=== PATIENT | female | born 2000 | race Hispanic/Latino ===

== ENCOUNTER 2022-10-26 16:17 | Emergency (ER) | payer OTHER ==
[~2022-10-26] VITALS: Ht 152.4 cm; Wt 56.2 kg
[2022-10-26] MEDS ORDERED: CEPHALEXIN500 MG PO (16:47)
[2022-10-26] MEDS ORDERED: MUPIROCIN22 GM TOP (16:47)
== END 2022-10-26 17:01 | disposition home or self-care (01) ==
LOC: ER 16:22
DX: R51.9 Headache, unspecified (principal); R21 Rash and other nonspecific skin eruption
CPT/HCPCS: 99282